=== PATIENT | male | born 1985 | race Caucasian/White ===

== ENCOUNTER 2018-12-22 10:27 | Emergency (ER) | payer OTHER ==
[~2018-12-22] VITALS: Ht 177.8 cm; Wt 127.9 kg
[2018-12-22] MEDS ORDERED: CLONAZEPAM1 MG (10:31)
[2018-12-22] MEDS ORDERED: RESTORIL30 M1 (10:32)
[2018-12-22] MEDS ORDERED: COZAAR25 MG (10:32)
[2018-12-22] MEDS ORDERED: CITALOPRAM HBR10 MG (10:32)
== END 2018-12-22 12:14 | disposition home or self-care (01) ==
LOC: ER 10:27
DX: F06.4 Anxiety disorder due to known physiological condition (principal)